=== PATIENT | female | born 1955 | race Caucasian/White ===

== ENCOUNTER 2024-10-21 10:12 | Inpatient (IN) | payer OTHER, MEDICAID ==
[~2024-10-21] VITALS: Ht 157.5 cm; Wt 117.9 kg
--- NOTE | 2024-10-21 10:30 | ED.PDOC ---
GI ASSESSMENT HPI Comments Nausea, vomiting and right lower extremity pain Chief Complaint: Abdominal Pain Comments 69-year-old female brought in by EMS from home complaining of an exacerbation of chronic right lower extremity pain due to spinal stenosis and sciatica. Patient states she has had nausea and vomiting since 1:00 a.m., associated with right- sided abdominal burning pain. She states she has been unable to keep any food o r liquids down, including her pain medication, which has resulted in an exacerbation of her chronic right lower extremity pain. Family was attempting to bring the patient to a pain management appointment today, however the patient was in so much pain she was unable to ambulate or get into her vehicle, at which point the family called 911. Patient denies any fever, diarrhea, constipation or dysuria. She denies any numbness or weakness of her lower extremity, and confirms that the pain is chronic. She typically takes [place] and gabapentin for the pain. 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 Surgical History: Cholecystectomy, Hernia Repair HAM MARKER History: No Pertinent HAM MARKER History Family History Family History: Reviewed,noncontributory to illness Social History Smoker: Non-Smoker Alcohol: Denies ETOH Use Drugs: Denies Drug Use Lives In: Home All Other Systems: Reviewed and Negative (Comprehensive systems review obtained and negative except for what is stated in the HPI.) Physical Exam General Appearance: No Apparent Distress HEENT: Other (Pupils symmetric, dry mucous membranes) Neck: Full Range of Motion, Non-Tender, Normal Inspection, Supple Respiratory: Lungs Clear, No Accessory Muscle Use, No Respiratory Distress, Normal Breath Sounds Cardiovascular: No Edema, No JVD, Regular Rate/Rhythm Breast Exam: Deferred Gastrointestinal: Epigastric, RLQ, RUQ, Soft, Tenderness Genitalia: Deferred Pelvic: Deferred Rectal: Deferred Extremities: Normal inspection, Normal range of motion, Non-tender, Pedal edema (Trace) Neurologic: Alert (Oriented x4), Normal Affect, Normal Mood, Other (Moves all extremities. No gross focal deficit. Low back and Right lower extremity pain with straight leg raise) Cerebellar Function: NOT DONE Reflexes: NOT DONE Skin: Dry, Normal Color, Warm Lymphatic: NOT DONE Was a procedure done? Was a procedure done?: No GI differential Dx Differential Diagnosis: Appendicitis, Bowel Obstruction, Cholecystitis, Constipation, Diverticular disease, Gastritis/PUD, Gastroenteritis, Hepatitis, Inflammatory BD, Ischemic Bowel, Pancreatitis, UTI, Dehydration, Diabetes/ DKA, Electrolyte Imbalance, Food Poisoning, Bacterial, Viral, Impaction, Renal Failure, Stress Ulcer, Kidney Stone X-Ray, Labs, Meds, VS Vital Signs Date Time Temp Pulse Resp B/P (MAP) Pulse Ox O2 Delivery O2 Flow Rate FiO2 10/21/24 15:20 78 18 97 Room Air* 0 21 10/21/24 15:20 98.0 78 18 149/80 (103) 98 98.0 10/21/24 12:36 76 17 147/72 (97) 100 10/21/24 11:09 80 17 120/84 10/21/24 10:46 87 20 100 Room Air* 0 21 10/21/24 10:39 87 20 139/70 10/21/24 10:35 97.6 87 20 139/70 (93) 100 97.6 10/21/24 10:19 99.0 92 16 120/80 (93) 100 Lab Test 10/21/24 13:42 10/21/24 11:48 10/21/24 10:34 Range/Units Troponin I High Sensitivity 10 8 8 </=34 ng/L White Blood Count 19.3 H 4.4-10.8 10^3/uL Red Blood Count 4.72 4.0-5.20 10^6/uL Hemoglobin 13.7 12.2-16.2 g/dL Hematocrit 41.5 36.0-46.0 % Mean Corpuscular Volume 88.0 80.0-100.0 fL Mean Corpuscular Hemoglobin 29.0 28.0-32.0 pg Mean Corpuscular Hemoglobin Concent 32.9 32.0-36.0 g/dL Red Cell Distribution Width 13.3 11.8-14.3 % Platelet Count 237 140-450 10^3/uL Mean Platelet Volume 8.4 6.9-10.8 fL Neutrophils (%) (Auto) 89.4 H 37.0-80.0 % Lymphocytes (%) (Auto) 6.3 L 10.0-50.0 % Monocytes (%) (Auto) 3.8 0.0-12.0 % Eosinophils (%) (Auto) 0.2 0.0-7.0 % Basophils (%) (Auto) 0.3 0.0-2.0 % Neutrophils # (Auto) 17.2 H 1.6-8.6 10 ^3/uL Lymphocytes # (Auto) 1.2 0.4-5.4 10 ^3/uL Monocytes # (Auto) 0.7 0-1.3 10 ^3/uL Eosinophils # (Auto) 0 0-0.8 10 ^3/uL Basophils # (Auto) 0.1 0-0.2 10 ^3/uL Nucleated Red Blood Cells 0.0 % Sodium Level 137 136-145 mmol/L Potassium Level 2.8 L 3.5-5.1 mmol/L Chloride Level 98 98-107 mmol/L Carbon Dioxide Level 26 20-31 mmol/L Anion Gap 13 5-15 Blood Urea Nitrogen 18 9-23 mg/dL Creatinine 0.89 0.550-1.02 mg/dL Glomerular Filtration Rate Calc 71 >90 mL/min BUN/Creatinine Ratio 20.2 H 10.0-20.0 Serum Glucose 161 H 74-106 mg/dL Lactic Acid Level 1.6 0.4-2.0 mmol/L Calcium Level 10.8 H 8.7-10.4 mg/dL Total Bilirubin 0.8 0.2-1.0 mg/dL Aspartate Amino Transferase (AST) 20 13-40 U/L Alanine Aminotransferase (ALT) 16 7-40 U/L Alkaline Phosphatase 134 H 46-116 U/L Total Protein 6.7 5.7-8.2 g/dL Albumin 4.6 3.2-4.8 g/dL Lipase 29 12-53 U/L Current Medications Medications (Trade) Dose Ordered Sig/Ryann Route Start Time Stop Time Status Last Admin Morphine Sulfate 4 mg ONCE ONCE IV 10/21/24 10:30 10/21/24 10:31 DC 10/21/24 10:39 Ondansetron HCl (Zofran) 4 mg ONCE ONCE IV 10/21/24 10:30 10/21/24 10:31 DC 10/21/24 10:39 Sodium Chloride 1,000 ml @ 1,000 mls/hr Q1H ONCE IV 10/21/24 10:30 10/21/24 11:29 DC 10/21/24 10:38 Pantoprazole Sodium (Protonix) 40 mg ONCE ONCE IV 10/21/24 10:30 10/21/24 10:31 DC 10/21/24 10:39 Potassium Chloride (Klor-Con Tablet) 40 meq ONCE ONCE PO 10/21/24 14:15 10/21/24 14:27 DC 10/21/24 15:11 Potassium Chloride 100 ml @ 50 mls/hr ONCE ONCE IV 10/21/24 14:15 10/21/24 16:14 DC 10/21/24 14:15 Sodium Chloride 1,000 ml @ 60 mls/hr [id number] IV 10/21/24 16:00 10/21/24 16:23 Morphine Sulfate 2 mg Q4HPRN PRN IV 10/21/24 16:00 10/21/24 21:20 PROCEDURE(s): ABPL - CT AB PEL WO CON-NO ORAL OR IV REASON: R sided abd pain, n/v ORDER NUMBER(s): [id number], ACCESSION NUMBER(s): [id number] Exam: CT CT AB PEL WO CON-NO ORAL OR IV History: R sided abd pain, n/v Comparison Study: None available at time of dictation. Technique: Multidetector spiral CT of the abdomen and pelvis was performed from lung bases to pubic symphysis. Imaging was performed without intravenous contrast. Coronal and sagittal multiplanar reformats were obtained from the axial data set by the technologist. Radiation Dose : 1. Abdomen/Pelvis: CTDIvol 26.9 mGy, DLP 1432.2 mGy*cm. Findings: Evaluation of vasculature and solid organs is limited due to lack of intravenous contrast use. Lung Bases: Cavitary lesion in the right lower lobe is present measuring 3.4 cm. 4 mm cavitating lesion in the right middle lobe. Visualized portions of the heart and pericardium are unremarkable. Liver: The liver is normal in size. No focal lesions. Diffusely hypoattenuating liver parenchyma consistent with hepatic steatosis. Gallbladder and Biliary Tree: The gallbladder is surgically absent. No intrahepatic or extrahepatic biliary ductal dilatation. Spleen: Unremarkable Pancreas: The pancreas is grossly unremarkable. Adrenal Glands: Unremarkable Kidneys: Kidneys are unremarkable without calculi or hydronephrosis. GI tract: Hiatal hernia. No evidence of small bowel wall thickening or abnormal dilatation to suggest bowel obstruction. Sigmoid diverticulosis without acute diverticulitis. Normal caliber appendix. Peritoneum/mesentery/retroperitoneum. No evidence of free intraperitoneal air. No ascites. There are several nodular soft tissue densities in the ventral abd ominal wall peritoneum measuring 2.7 cm. Lymph nodes: Enlarged left para-aortic lymph node measures 1.4 cm. Abdominal Wall: Containing supraumbilical hernia. Mild fat stranding in the hernia sac. There is a nother supraumbilical hernia containing fat and soft tissue density measuring 1.3 cm. Vasculature: The visualized abdominal aorta is normal in size and caliber. Evaluation of abdominal and pelvic vessels is limited due to lack of intravenous contrast. There are atherosclerotic calcifications in the aorta. Urinary Bladder: Grossly unremarkable for degree of distention. Pelvic Organs: Unremarkable Musculoskeletal: 1.7 cm lytic lesion in the medial wall of the left acetabulum. Lucency in the superior L2 endplate mild height loss and osseous retropulsion. Soft tissues: Nodular soft tissue density in the back at the level of the thoracolumbar junction measuring 2.7 cm. IMPRESSION: 1. No acute finding in the right lower quadrant to explain patient's symptoms. 2. Multiple peritoneal masses suspicious for peritoneal metastatic implants. Primary source is unclear. Consider PET-CT or tissue sampling for further evaluation. 3. Sigmoid diverticulosis without acute diverticulitis. 4. Cavitary mass in the right lower lobe measuring 3.4 cm and smaller cavitary mass in the right middle lobe. These are concerning for cavitary metastatic lesions. Cavitary pneumonia not excluded. 5. Lesion in the L2 superior endplate and medial wall of the left acetabulum concerning for metastatic disease. 6. Retroperitoneal lymphadenopathy, possibly metastatic 7. Cholecystectomy. 8. Hepatic steatosis. X-Ray, Labs, Meds, VS Comment 69-year-old female with a history of hypertension, COPD, spinal stenosis, chronic sciatic nerve pain/right lower extremity pain brought in by EMS from home complaining of a chronic right lower extremity pain exacerbation due to being unable to keep any food or liquids down since she has been vomiting since 1:00 a.m. Vitals remarkable for Exam remarkable for right-sided abdominal and epigastric tenderness to palpation Rhythm strip independently interpreted by me: CT abdomen and pelvis IMPRESSION: 1. No acute finding in the right lower quadrant to explain patient's symptoms. 2. Multiple peritoneal masses suspicious for peritoneal metastatic implants. Primary source is unclear. Consider PET-CT or tissue sampling for further evaluation. 3. Sigmoid diverticulosis without acute diverticulitis. 4. Cavitary mass in the right lower lobe measuring 3.4 cm and smaller cavitary mass in the right middle lobe. These are concerning for cavitary metastatic lesions. Cavitary pneumonia not excluded. 5. Lesion in the L2 superior endplate and medial wall of the left acetabulum concerning for metastatic disease. 6. Retroperitoneal lymphadenopathy, possibly metastatic 7. Cholecystectomy. 8. Hepatic steatosis. CBC remarkable for WBC 19.3, CMP remarkable for potassium 2.8, lipase normal, UA pending, lactic normal Patient treated with the following in the ED: 1 L 0.9 normal saline IV bolus, morphine 4 mg IV, Zofran 4 mg IV, Protonix 40 mg IV On re-evaluation, patient states pain has improved, vitals were stable, nausea has improved. Plan is to admit the patient for pain control, electrolyte correction, and Oncology evaluation. Time of 1ST Reevaluation: 14:00 Reevaluation 1ST: Improved Patient Education/Counseling: Diagnosis, Treatment Family Education/Counseling: No Family Present Departure 1 Departure Time of Disposition: 14:00 Impression: Primary Impression: Nausea & vomiting Qualified Codes: R11.2 - Nausea with vomiting, unspecified Additional Impressions: Hypokalemia Metastasis of unknown origin Chronic pain of right lower extremity Disposition: ADMITTED INPATIENT Admit to: Med Surg Condition: Guarded Critical Care Note Critical Care Time?: No Stability Stability form required: No Heart Score Heart Score: Heart Score Response (Comments) Value History N/A 0 EKG N/A 0 Age N/A 0 Risk Factors N/A 0 Troponin N/A 0 Total 0 PAYAM TAVERA MD Oct 21, 2024 10:30
[2024-10-21] MEDS: SODIUM CHLORIDE 0.9% 1,000 ML IV ONE (10:38)
[2024-10-21] MEDS: MORPHINE SULFATE 4 MG/ML SYR/VIAL IV ONE (10:39)
[2024-10-21] MEDS: ONDANSETRON HCL 4 MG/2 ML VIAL IV ONE (10:39)
[2024-10-21] MEDS: PANTOPRAZOLE 40 MG/10 ML VIAL INJ IV ONE (10:39)
[2024-10-21 10:46] VITALS: PULSE 87; RESP 20; O2SAT 100
[2024-10-21 10:56] LABS: Basophils # (auto) 0.1 10 ^3/uL (0-0.2); Basophils % (auto) 0.3 % (0.0-2.0); Eosinophils # (auto) 0 10 ^3/uL (0-0.8); Eosinophils % (auto) 0.2 % (0.0-7.0); Hematocrit 41.5 % (36.0-46.0); Hemoglobin 13.7 g/dL (12.2-16.2); Lymphocytes # (auto) 1.2 10 ^3/uL (0.4-5.4); Lymphocytes % (auto) 6.3 % (10.0-50.0); Mean Corpuscular Hgb Conc. 32.9 g/dL (32.0-36.0); Monocytes # (auto) 0.7 10 ^3/uL (0-1.3); Monocytes % (auto) 3.8 % (0.0-12.0); Neutrophils # (auto) 17.2 10 ^3/uL (1.6-8.6); Neutrophils % (auto) 89.4 % (37.0-80.0); Platelet Count (auto) 237 10^3/uL (140-450); Red Blood Cells 4.72 10^6/uL (4.0-5.20); Red Cell Distribution Width 13.3 % (11.8-14.3); White Blood Cell 19.3 10^3/uL (4.4-10.8)
[2024-10-21 11:17] LABS: Alanine Aminotransferase 16 U/L (7-40); Carbon Dioxide 26 mmol/L (20-31); Chloride 98 mmol/L (98-107)
[2024-10-21 11:18] LABS: Albumin 4.6 g/dL (3.2-4.8); Anion Gap 13 (5-15); Aspartate Aminotransferase 20 U/L (13-40); BUN/Creatinine Ratio 20.2 (10.0-20.0); Bilirubin, Total 0.8 mg/dL (0.2-1.0); Blood Urea Nitrogen 18 mg/dL (9-23); Lipase 29 U/L (12-53); Sodium 137 mmol/L (136-145); Total Protein 6.7 g/dL (5.7-8.2)
[2024-10-21 11:23] LABS: Alkaline Phosphatase 134 U/L (46-116); Calcium 10.8 mg/dL (8.7-10.4); Glucose 161 mg/dL (74-106); Potassium 2.8 mmol/L (3.5-5.1)
--- NOTE | 2024-10-21 12:08 | DVH ---
Exam: CT CT AB PEL WO CON-NO ORAL OR IV History: R sided abd pain, n/v Comparison Study: None available at time of dictation. Technique: Multidetector spiral CT of the abdomen and pelvis was performed from lung bases to pubic s ymphysis. Imaging was performed without intravenous contrast. Coronal and sagittal multiplanar reform ats were obtained from the axial data set by the technologist. Radiation Dose : 1. Abdomen/Pelvis: CTDIvol 26.9 mGy, DLP 1432.2 mGy*cm. Findings: Evaluation of vasculature and solid organs is limited due to lack of intravenous contrast use. Lung Bases: Cavitary lesion in the right lower lobe is present measuring 3.4 cm. 4 mm cavitating lesi on in the right middle lobe. Visualized portions of the heart and pericardium are unremarkable. Liver: The liver is normal in size. No focal lesions. Diffusely hypoattenuating liver parenchyma con sistent with hepatic steatosis. Gallbladder and Biliary Tree: The gallbladder is surgically absent. No intrahepatic or extrahepatic b iliary ductal dilatation. Spleen: Unremarkable Pancreas: The pancreas is grossly unremarkable. Adrenal Glands: Unremarkable Kidneys: Kidneys are unremarkable without calculi or hydronephrosis. GI tract: Hiatal hernia. No evidence of small bowel wall thickening or abnormal dilatation to suggest bowel obstruction. Sigmoid diverticulosis without acute diverticulitis. Normal caliber appendix. Peritoneum/mesentery/retroperitoneum. No evidence of free intraperitoneal air. No ascites. There are several nodular soft tissue densities in the ventral abdominal wall peritoneum measuring 2.7 cm. Lymph nodes: Enlarged left para-aortic lymph node measures 1.4 cm. Abdominal Wall: Containing supraumbilical hernia. Mild fat stranding in the hernia sac. There is a n other supraumbilical hernia containing fat and soft tissue density measuring 1.3 cm. Vasculature: The visualized abdominal aorta is normal in size and caliber. Evaluation of abdominal a nd pelvic vessels is limited due to lack of intravenous contrast. There are atherosclerotic calcifica tions in the aorta. Urinary Bladder: Grossly unremarkable for degree of distention. Pelvic Organs: Unremarkable Musculoskeletal: 1.7 cm lytic lesion in the medial wall of the left acetabulum. Lucency in the superi or L2 endplate mild height loss and osseous retropulsion. Soft tissues: Nodular soft tissue density in the back at the level of the thoracolumbar junction loyd uring 2.7 cm. IMPRESSION: 1. No acute finding in the right lower quadrant to explain patient's symptoms. 2. Multiple peritoneal masses suspicious for peritoneal metastatic implants. Primary source is unclea r. Consider PET-CT or tissue sampling for further evaluation. 3. Sigmoid diverticulosis without acute diverticulitis. 4. Cavitary mass in the right lower lobe measuring 3.4 cm and smaller cavitary mass in the right midd le lobe. These are concerning for cavitary metastatic lesions. Cavitary pneumonia not excluded. 5. Lesion in the L2 superior endplate and medial wall of the left acetabulum concerning for metastati c disease. 6. Retroperitoneal lymphadenopathy, possibly metastatic 7. Cholecystectomy. 8. Hepatic steatosis.
[2024-10-21] MEDS: POTASSIUM CHL 20MEQ/100ML 100 ML IV ONE (14:15)
[2024-10-21] MEDS: POTASSIUM CHL 20 Meq TABLET PO ONE (15:11)
[2024-10-21 15:20] VITALS: PULSE 78; RESP 18; O2SAT 97
[2024-10-21] MEDS ORDERED: ONDANSETRON HCL 4 MG/2 ML VIAL IV PRN (16:00)
[2024-10-21] MEDS ORDERED: ACETAMINOPHEN 325 MG TAB PO PRN (16:00)
[2024-10-21] MEDS ORDERED: DOCUSATE SOD 100 MG CAP PO PRN (16:00)
--- NOTE | 2024-10-21 16:13 | DVHHP2 ---
History of Present Illness Reason for Visit: Nausea & vomiting History of Present Illness The patient is a 69-year-old female with multiple past medical history including spinal stenosis, hypertension, and COPD who presented to [facility] ED with complaint of exacerbation of chronic right lower extremity pain due to spinal stenosis and sciatica. Patient reports she has been nauseated and vomiting throughout this morning, associated right-sided abdominal pain, unable to keep any food or liquid down, getting worse that prompted this visit. Family was attempting to bring the patient to a pain management appointment today, however, the patient was in so much pain that she was unable to ambulate or get into her vehicle, so EMS were called 911. Patient was seen and evaluated in the ED, laboratory data shows WBC 19.3, platelets 237, sodium 137, potassium 2.8, BUN 18, creatinine 0.89, GFR 71, glucose 161, lipase 29, calcium 10.8, troponin 10, blood pressure 149/80, heart rate 78, temperature 98.0 F, O2 saturation 97% on room air. Abdomen/pelvis CT revealing multiple peritoneal masses suspicious for peritoneal metastatic implant, primary source is unclear, sigmoid dive rticulosis without acute diverticulitis, no acute finding in the right lower quadrant. Patient was started on IV antibiotic regimen Rocephin, please see medication orders section in the computer. On my assessment, patient denies chest pain, no headache, no dizziness, no abdominal pain at this moment, no nausea, no vomiting, no fever, no chills. Patient was admitted for further eval uation and medical management. 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 Past Social History The patient lives at home, denies smoking, alcohol or illicit drugs abuse. Review of Systems Constitutional: Yes: Weakness; No: Fever, Chills, Sweats, Malaise, Other Eyes: No: Pain, Vision change, Conjunctivae inflammation, Eyelid inflammation, Other, Redness ENT: No: Ear pain, Ear discharge, Nose pain, Nose discharge, Nose congestion, Mouth pain, Mouth swelling, Throat pain, Throat swelling, Other Respiratory: No: Cough, Dry, Shortness of breath, SOB with excertion, Wheezing, Hemoptysis, Pleuritic Pain, Sputum, Wheezing, Other Cardiovascular: No: Chest Pain, Palpitations, Orthopnea, Paroxysmal Noc. Dyspnea, Edema, Lt Headedness, Other Gastrointestinal: Nausea, Vomiting, Abdominal Pain; No: Diarrhea, Constipation, Melena, Hematochezia, Other Genitourinary: No Dysuria, No Frequency, No Incontinence, No Hematuria, No Retention, No Other Musculoskeletal: back pain; No: other, neck pain, shoulder pain, arm pain, hand pain, leg pain, foot pain Skin: No: Rash, Lesions, Jaundice, Bruising, Other Neurological: No: Weakness, Numbness, Incoordination, Change in speech, Confusion, Seizures, Other Allergies: Coded Allergies: Meperidine (Verified Allergy, Unknown, 10/21/24) Medications Current Medications Medications Dose Ordered Sig/Ryann Route Start Time Stop Time Status Last Admin Dose Admin Pantoprazole Sodium 40 mg DAILY IV 10/22/24 10:00 UNV Sodium Chloride 1,000 ml @ 60 mls/hr [id number] IV 10/21/24 16:00 UNV Acetaminophen/ Hydrocodone Bitart 1 tab Q4HP PRN PO 10/21/24 16:00 UNV Ondansetron HCl 4 mg Q4HP PRN IV 10/21/24 16:00 UNV Docusate Sodium 100 mg BIDPRN PRN PO 10/21/24 16:00 UNV Acetaminophen 650 mg Q6HP PRN PO 10/21/24 16:00 UNV Morphine Sulfate 2 mg Q4HPRN PRN IV 10/21/24 16:00 UNV Exam Vital Signs Vital Signs Date Time Temp Pulse Resp B/P (MAP) Pulse Ox O2 Delivery O2 Flow Rate FiO2 10/21/24 15:20 78 18 97 Room Air* 0 21 10/21/24 15:20 98.0 149/80 (103) 98.0 General Appearance: Alert, Oriented X3, Cooperative, No acute distress HEENT: Atraumatic, PERRLA, EOMI, Mucous membr. moist/pink Respiratory: Clear to auscultation, Normal air movement Cardiovascular: Regular rate, Normal S1, Normal S2, No murmurs Abdominal: Normal bowel sounds, Soft, No tenderness, No hepatospenomegaly, No masses Extremities: No clubbing, No cyanosis, No edema, Normal pulses, No tenderness/swelling Skin: No rashes, No breakdown, No significant lesion Neuro: Normal speech, Normal tone, Sensation intact, Cranial nerves 3-12 NL, Reflexes 2+, Other (Generalized weakness) Psych/Mental Status: Mental status NL, Mood NL Labs/Xrays Labs Test 10/21/24 13:42 10/21/24 10:34 Range/Units Troponin I High Sensitivity 10 </=34 ng/L White Blood Count 19.3 H 4.4-10.8 10^3/uL Red Blood Count 4.72 4.0-5.20 10^6/uL Hemoglobin 13.7 12.2-16.2 g/dL Hematocrit 41.5 36.0-46.0 % Mean Corpuscular Volume 88.0 80.0-100.0 fL Mean Corpuscular Hemoglobin 29.0 28.0-32.0 pg Mean Corpuscular Hemoglobin Concent 32.9 32.0-36.0 g/dL Red Cell Distribution Width 13.3 11.8-14.3 % Platelet Count 237 140-450 10^3/uL Mean Platelet Volume 8.4 6.9-10.8 fL Neutrophils (%) (Auto) 89.4 H 37.0-80.0 % Lymphocytes (%) (Auto) 6.3 L 10.0-50.0 % Monocytes (%) (Auto) 3.8 0.0-12.0 % Eosinophils (%) (Auto) 0.2 0.0-7.0 % Basophils (%) (Auto) 0.3 0.0-2.0 % Neutrophils # (Auto) 17.2 H 1.6-8.6 10 ^3/uL Lymphocytes # (Auto) 1.2 0.4-5.4 10 ^3/uL Monocytes # (Auto) 0.7 0-1.3 10 ^3/uL Eosinophils # (Auto) 0 0-0.8 10 ^3/uL Basophils # (Auto) 0.1 0-0.2 10 ^3/uL Nucleated Red Blood Cells 0.0 % Sodium Level 137 136-145 mmol/L Potassium Level 2.8 L 3.5-5.1 mmol/L Chloride Level 98 98-107 mmol/L Carbon Dioxide Level 26 20-31 mmol/L Anion Gap 13 5-15 Blood Urea Nitrogen 18 9-23 mg/dL Creatinine 0.89 0.550-1.02 mg/dL Glomerular Filtration Rate Calc 71 >90 mL/min BUN/Creatinine Ratio 20.2 H 10.0-20.0 Serum Glucose 161 H 74-106 mg/dL Lactic Acid Level 1.6 0.4-2.0 mmol/L Calcium Level 10.8 H 8.7-10.4 mg/dL Total Bilirubin 0.8 0.2-1.0 mg/dL Aspartate Amino Transferase (AST) 20 13-40 U/L Alanine Aminotransferase (ALT) 16 7-40 U/L Alkaline Phosphatase 134 H 46-116 U/L Total Protein 6.7 5.7-8.2 g/dL Albumin 4.6 3.2-4.8 g/dL Lipase 29 12-53 U/L PATIENT: HAIM GALICIA ACCT: [id number] UNIT: [id number] : 1955 LOC: ER ROOM / BED: / AGE / SEX: 69 / F ADM STATUS: REG ER SERVICE 1021 ORDERING PHYSICIAN: PAYAM TAVERA MD PROCEDURE(s): ABPL - CT AB PEL WO CON-NO ORAL OR IV REASON: R sided abd pain, n/v ORDER NUMBER(s): [id number], ACCESSION NUMBER(s): [id number] Exam: CT CT AB PEL WO CON-NO ORAL OR IV History: R sided abd pain, n/v Comparison Study: None available at time of dictation. Technique: Multidetector spiral CT of the abdomen and pelvis was performed from lung bases to pubic symphysis. Imaging was performed without intravenous contrast. Coronal and sagittal multiplanar reformats were obtained from the axial data set by the technologist. Radiation Dose: 1. Abdomen/Pelvis: CTDIvol 26.9 mGy, DLP 1432.2 mGy*cm. Findings: Evaluation of vasculature and solid organs is limited due to lack of intravenous contrast use. Lung Bases: Cavitary lesion in the right lower lobe is present measuring 3.4 cm. 4 mm cavitating lesion in the right middle lobe. Visualized portions of the heart and pericardium are unremarkable. Liver: The liver is normal in size. No focal lesions. Diffusely hypoattenuating liver parenchyma consistent with hepatic steatosis. Gallbladder and Biliary Tree: The gallbladder is surgically absent. No intrahepatic or extrahepatic biliary ductal dilatation. Spleen: Unremarkable Pancreas: The pancreas is grossly unremarkable. Adrenal Glands: Unremarkable Kidneys: Kidneys are unremarkable without calculi or hydronephrosis. GI tract: Hiatal hernia. No evidence of small bowel wall thickening or abnormal dilatation to suggest bowel obstruction. Sigmoid diverticulosis without acute diverticulitis. Normal caliber appendix. Peritoneum/mesentery/retroperitoneum. No evidence of free intraperitoneal air. No ascites. There are several nodular soft tissue densities in the ventral abdominal wall peritoneum measuring 2.7 cm. Lymph nodes: Enlarged left para-aortic lymph node measures 1.4 cm. Abdominal Wall: Containing supraumbilical hernia. Mild fat stranding in the hernia sac. There is a nother supraumbilical hernia containing fat and soft tissue density measuring 1.3 cm. Vasculature: The visualized abdominal aorta is normal in size and caliber. Evaluation of abdominal and pelvic vessels is limited due to lack of intravenous contrast. There are atherosclerotic calcifications in the aorta. Urinary Bladder: Grossly unremarkable for degree of distention. Pelvic Organs: Unremarkable Musculoskeletal: 1.7 cm lytic lesion in the medial wall of the left acetabulum. Lucency in the superior L2 endplate mild height loss and osseous retropulsion. Soft tissues: Nodular soft tissue density in the back at the level of the thoracolumbar junction measuring 2.7 cm. IMPRESSION: 1. No acute finding in the right lower quadrant to explain patient's symptoms. 2. Multiple peritoneal masses suspicious for peritoneal metastatic implants. Primary source is unclear. Consider PET-CT or tissue sampling for further evaluation. 3. Sigmoid diverticulosis without acute diverticulitis. 4. Cavitary mass in the right lower lobe measuring 3.4 cm and smaller cavitary mass in the right middle lobe. These are concerning for cavitary metastatic lesions. Cavitary pneumonia not excluded. 5. Lesion in the L2 superior endplate and medial wall of the left acetabulum concerning for metastatic disease. 6. Retroperitoneal lymphadenopathy, possibly metastatic 7. Cholecystectomy. 8. Hepatic steatosis. Assessment/Plan Assessment/Plan Nausea & vomiting Nausea with vomiting, unspecified Hypokalemia Leukocytosis, unspecified Metastasis of unknown origin Chronic pain of right lower extremity Plan 1. Admit to med surge unit 2. Breathing treatment 3. Pain control management 4. IV antibiotic management 5. Management of fluids and electrolytes 6. Consultation for hospitalist/Hematology/Oncology 7. Diagnostic test abdomen/pelvis CT 8. DVT prophylaxis-on SCDs 9. Repeat labs CBC, CMP in a.m. 10. Home medication reviewed and reconciled 11. Continue with current medical management 12. Treatment plan discussed with patient and RN. Patient verbalized understanding. Plan discussed with: Patient, Other (RN) My Orders Orders - JOHN MARTINEZ DNP Procedure Category Date Status Time Pantoprazole PHA 10/22/24 Logged (Protonix) 10:00 Hemoglobin A1c LAB 10/21/24 Logged 15:59 Allergies HARISH 10/21/24 In Process 15:59 Code Status CODE 10/21/24 Transmitted 15:59 Sodium Chloride 0.9% PHA 10/21/24 Logged 16:00 Oxygen Per Hour RT 10/21/24 Transmitted 15:59 Hydrocodone-Acet PHA 10/21/24 Logged 5/325mg Tab ([place] 16:00 Ondansetron Hcl PHA 10/21/24 Logged (Zofran) 16:00 Docusate Sodium PHA 10/21/24 Logged Capsule (Colace 16:00 Complete Blood Count LAB 10/22/24 Verified 04:00 Comprehensive LAB 10/22/24 Verified Metabolic Panel 04:00 Condition: Serious HARISH 10/21/24 In Process 15:59 Acetaminophen Tablet PHA 10/21/24 Logged (Tylenol Tablet) 16:00 Clear Liq Diet DIET 10/21/24 Transmitted Dinner Bedrest With Bathroom HARISH 10/21/24 In Process Privileg 15:59 Morphine Sulfate PHA 10/21/24 Logged Injection 16:00 Sequential HARISH 10/21/24 In Process Compression Device Admit ADMIT 10/21/24 Verified 16:10 Nitroglycerin PHA 10/21/24 Verified Sublingual (Ntrostat 16:15 Morphine Sulfate PHA 10/21/24 Verified Injection 16:15 Notify Md Of Changes AHRISH 10/21/24 Verified From Base 16:10 Emergency Dysrhythmia HARISH 10/21/24 Verified Protocol 16:10 Oxygen By Nasal RT 10/21/24 Verified Cannula 16:10 Problem List: (1) Nausea & vomiting (2) Leukocytosis, unspecified (3) Hypokalemia (4) Metastasis of unknown origin (5) Chronic pain of right lower extremity (6) Nausea with vomiting, unspecified Date of Service: Oct 21, 2024 Billing Provider: JOHN MARTINEZ DNP Common Visit Codes: 31881-[id number] INP/OBS CARE (HIGH) JOHN MARTINEZ DNP Oct 21, 2024 16:13
[2024-10-21] MEDS ORDERED: NITROGLYCERIN 0.4 MG SL TAB SL PRN (16:15)
[2024-10-21] MEDS ORDERED: MORPHINE SULFATE INJ 2 MG/ml SYRG IV PRN (16:15)
[2024-10-21] MEDS: SODIUM CHLORIDE 0.9% 1,000 ML IV SCH (16:23)
[2024-10-21] MEDS: HYDROmorphone HCL 2 MG/ML VL/or syr IV ONE (17:21)
[2024-10-21 17:51] VITALS: RESP 18
[2024-10-21 17:57] VITALS: PULSE 92; RESP 18; TEMP 98; O2SAT 95
[2024-10-21] MEDS ORDERED: hydrALAZINE HCL 20 MG/ML VL IV PRN (18:00)
[2024-10-21] MEDS: cefTRIAXone 1GM/50ML D5W 50 ML IV ONE (19:06)
[2024-10-21 21:00] VITALS: BP 137/75; PULSE 101; RESP 19; TEMP 98.3; O2SAT 97
[2024-10-21] MEDS: MORPHINE SULFATE INJ 2 MG/ml SYRG IV PRN (21:20)
[2024-10-21] MEDS: GABAPENTIN 300 MG CAP PO SCH (22:00)
[2024-10-22] VITALS (8 sets, daily range): BP systolic 117–150; BP diastolic 63–76; PULSE 87–105; RESP 16–20; TEMP 97.7–98.5; O2SAT 94–97
[2024-10-22 07:38] LABS: Basophils # (auto) 0.1 10 ^3/uL (0-0.2); Basophils % (auto) 0.3 % (0.0-2.0); Eosinophils # (auto) 0.4 10 ^3/uL (0-0.8); Eosinophils % (auto) 1.6 % (0.0-7.0); Hemoglobin 12.9 g/dL (12.2-16.2); Lymphocytes # (auto) 1.7 10 ^3/uL (0.4-5.4); Lymphocytes % (auto) 7.4 % (10.0-50.0); Mean Corpuscular Hgb Conc. 33.9 g/dL (32.0-36.0); Mean Corpuscular Volume 88.5 fL (80.0-100.0); Monocytes # (auto) 1.9 10 ^3/uL (0-1.3); Monocytes % (auto) 8.2 % (0.0-12.0); Neutrophils # (auto) 19.4 10 ^3/uL (1.6-8.6); Neutrophils % (auto) 82.5 % (37.0-80.0); Nucleated Red Blood Cells % 0.1 %; Platelet Count (auto) 222 10^3/uL (140-450); Red Blood Cells 4.29 10^6/uL (4.0-5.20); Red Cell Distribution Width 13.5 % (11.8-14.3); White Blood Cell 23.5 10^3/uL (4.4-10.8)
[2024-10-22] MEDS: HYDROcodone-ACET 5/325MG TAB PO PRN (07:47)
[2024-10-22 07:53] LABS: Alanine Aminotransferase 25 U/L (7-40); Anion Gap 14 (5-15); BUN/Creatinine Ratio 23.3 (10.0-20.0); Blood Urea Nitrogen 17 mg/dL (9-23); Calcium 9.9 mg/dL (8.7-10.4); Carbon Dioxide 23 mmol/L (20-31); Chloride 102 mmol/L (98-107); Sodium 139 mmol/L (136-145)
[2024-10-22 07:55] LABS: Albumin 4.1 g/dL (3.2-4.8); Aspartate Aminotransferase 22 U/L (13-40); Bilirubin, Total 0.8 mg/dL (0.2-1.0); Total Protein 6.1 g/dL (5.7-8.2)
[2024-10-22 07:56] LABS: Alkaline Phosphatase 128 U/L (46-116); Glucose 123 mg/dL (74-106); Potassium 2.8 mmol/L (3.5-5.1)
[2024-10-22] MEDS: cefTRIAXone 1GM/50ML D5W 50 ML IV SCH (09:44)
[2024-10-22] MEDS: PANTOPRAZOLE 40 MG/10 ML VIAL INJ IV SCH (09:44)
[2024-10-22] MEDS ORDERED: GABA-1250 PO (10:49)
[2024-10-22] MEDS ORDERED: LISI20TA56 PO (10:49)
[2024-10-22] MEDS ORDERED: HYDR-4798 PO (10:49)
--- NOTE | 2024-10-22 13:20 | DVHINCON2 ---
Date of service: Oct 22, 2024 Referring Physician Kizzy Hill Reason for Consultation Multiple peritoneal masses suspicious for peritoneal metastatic implants Cavitary mass in the right lower lobe measuring 3.4 cm and smaller cavitary mass in the right middle lobe. Retroperitoneal lymphadenopathy History of Present Illness 69 years old obese female who has a history of COPD, hypertension, spinal stenosis and sciatica in the right lower extremity was admitted with complaints of air which is stable nausea vomiting for one day could not keep any food down and came to the hospital CT scan of the abdomen pelvis without IV contrast was done which showed multiple peritoneal masses suspicious for peritoneal metastatic implants. Cavitary mass in the right lower lobe measuring 3.4 cm and a smaller cavitary mass in the right middle lobe concerning for cavitary metastatic disease. Lesion in the L2 superior endplate and medial wall of the left acetabulum concerning for Mets. Retroperitoneal lymphadenopathy probably metastatic disease hepatic steatosis the patient has lost 10 lb of weight. Her bowel movements are fine. She gives a history of ulcerative colitis in the last colonoscope was over 10 years back fevers night sweats no bruising or bleeding. Her white count is 23.5 hemoglobin 12.9 platelets 222 with 82.5% neutrophils. Potassium 2.8 normal renal functions and liver functions. Total protein six point albumin 4.1 Past Medical History COPD, hypertension, spinal stenosis with right leg pain Cholecystectomy and abdominal hernia repair Family History: Alcoholism FH: HTN (hypertension) FH: hepatic cirrhosis G8 FATHER FH: lymphoma G8 MOTHER Family History Sister breast cancer 20 cc breast cancer in their 30s Mother had non-Hodgkin's lymphoma Social History Patient is not a smoker or drinker or any drugs Allergies: Coded Allergies: Meperidine (Verified Allergy, Unknown, 10/21/24) Home Meds Reported Medications Hydrocodone-Acetaminophen (Hydrocodone Bitartrate/AC 10-325 mg) 1 Tab Tab, 1 TAB PO, TAB 10/22/24 Gabapentin (Gabapentin) 300 Mg Cap, 1 CAP PO TID, #90 CAP 3 Refills 10/22/24 Lisinopril (Lisinopril) 20 Mg Tab, 1 TAB PO DAILY, #30 TAB 5 Refills 10/22/24 Current Medications Current Medications Medications (Trade) Dose Ordered Sig/Ryann Route PRN Reason Start Time Stop Time Status Last Admin Pantoprazole Sodium (Protonix) 40 mg DAILY IV 10/22/24 10:00 10/22/24 09:44 Sodium Chloride 1,000 ml @ 60 mls/hr [id number] IV 10/21/24 16:00 10/21/24 16:23 Acetaminophen/ Hydrocodone Bitart ([place] 5/325MG Tab) 1 tab Q4HP PRN PO MODERATE PAIN (4-6 PAIN SCALE) 10/21/24 16:00 10/22/24 07:47 Ondansetron HCl (Zofran) 4 mg Q4HP PRN IV NAUSEA / VOMITING 10/21/24 16:00 Docusate Sodium (Colace Capsule) 100 mg BIDPRN PRN PO FOR CONSTIPATION 10/21/24 16:00 Acetaminophen (Tylenol Tablet) 650 mg Q6HP PRN PO PAIN SCALE 1-3 OR TEMP>100.4 10/21/24 16:00 Morphine Sulfate 2 mg Q4HPRN PRN IV SEVERE PAIN (7-10 PAIN SCALE) 10/21/24 16:00 10/22/24 11:51 Nitroglycerin (Ntrostat Sublingual) 0.4 mg Q5MINP PRN SL FOR CHEST PAIN 10/21/24 16:15 Morphine Sulfate 2 mg Q30M PRN IV FOR CHEST PAIN 10/21/24 16:15 Gabapentin (Neurontin Capsule) 300 mg TID PO 10/21/24 22:00 10/22/24 05:47 Hydralazine HCl (Apresoline Injection) 10 mg Q6HP PRN IV SBP>150 10/21/24 18:00 Ceftriaxone Sodium 50 ml @ 100 mls/hr DAILY@09 IV 10/22/24 09:00 10/22/24 09:44 Vital Signs Vital Signs Date Time Temp Pulse Resp B/P (MAP) Pulse Ox O2 Delivery O2 Flow Rate FiO2 10/22/24 11:51 89 18 139/74 10/22/24 08:51 97.8 95 97.8 10/22/24 07:30 Room Air* 0 21 Physical Exam Moderately built and nourished, in no acute distress, alert and oriented. Overweight female No jaundice Head and neck: Unremarkable for any masses or neck nodes. No conjunctival or mucosal hemorrhage Lungs: Clear Cardiovascular: S1-S2 heard well Abdomen: Multiple abdominal masses which could be subcutaneous, firm nontender measuring up to 3-4 cm Extremities: No clubbing edema cyanosis or calf tenderness. Skin: Unremarkable for petechia purpura ecchymosis Lymphadenopathy: None Neurological exam: No focal deficit breasts: Both breasts are unremarkable for masses tenderness discharge Axillae: Unremarkable Labs/Diagnostic Data Labs Test 10/22/24 06:10 10/21/24 16:21 10/21/24 13:42 10/21/24 10:34 Range/Units White Blood Count 23.5 H 4.4-10.8 10^3/uL Red Blood Count 4.29 4.0-5.20 10^6/uL Hemoglobin 12.9 12.2-16.2 g/dL Hematocrit 38.0 36.0-46.0 % Mean Corpuscular Volume 88.5 80.0-100.0 fL Mean Corpuscular Hemoglobin 30.0 28.0-32.0 pg Mean Corpuscular Hemoglobin Concent 33.9 32.0-36.0 g/dL Red Cell Distribution Width 13.5 11.8-14.3 % Platelet Count 222 140-450 10^3/uL Mean Platelet Volume 8.8 6.9-10.8 fL Neutrophils (%) (Auto) 82.5 H 37.0-80.0 % Lymphocytes (%) (Auto) 7.4 L 10.0-50.0 % Monocytes (%) (Auto) 8.2 0.0-12.0 % Eosinophils (%) (Auto) 1.6 0.0-7.0 % Basophils (%) (Auto) 0.3 0.0-2.0 % Neutrophils # (Auto) 19.4 H 1.6-8.6 10 ^3/uL Lymphocytes # (Auto) 1.7 0.4-5.4 10 ^3/uL Monocytes # (Auto) 1.9 H 0-1.3 10 ^3/uL Eosinophils # (Auto) 0.4 0-0.8 10 ^3/uL Basophils # (Auto) 0.1 0-0.2 10 ^3/uL Nucleated Red Blood Cells 0.1 % Sodium Level 139 136-145 mmol/L Potassium Level 2.8 L 3.5-5.1 mmol/L Chloride Level 102 98-107 mmol/L Carbon Dioxide Level 23 20-31 mmol/L Anion Gap 14 5-15 Blood Urea Nitrogen 17 9-23 mg/dL Creatinine 0.73 0.550-1.02 mg/dL Glomerular Filtration Rate Calc 90 >90 mL/min BUN/Creatinine Ratio 23.3 H 10.0-20.0 Serum Glucose 123 H 74-106 mg/dL Calcium Level 9.9 8.7-10.4 mg/dL Total Bilirubin 0.8 0.2-1.0 mg/dL Aspartate Amino Transferase (AST) 22 13-40 U/L Alanine Aminotransferase (ALT) 25 7-40 U/L Alkaline Phosphatase 128 H 46-116 U/L Total Protein 6.1 5.7-8.2 g/dL Albumin 4.1 3.2-4.8 g/dL Hemoglobin A1c 6.1 H <5.7 % A1C Troponin I High Sensitivity 10 </=34 ng/L Lactic Acid Level 1.6 0.4-2.0 mmol/L Lipase 29 12-53 U/L Assessment 1.Multiple peritoneal masses, cavitary mass in the right lower lobe of the lung measuring 3.4 cm and a smaller cavitary mass in the right middle lobe and a lesion in the L2 superior endplate suspicious, retroperitoneal lymphadenopathy suspicious, may rule out underlying malignancy. Has a history of ulcerative colitis raising the concern colon cancer or other malignancies 2. Obesity 3. History of COPD 4. Hypertension 5. Spinal stenosis Plan/Recommendation Biopsy one of the abdominal masses A bone scan CT of the chest with contrast CT of the abdomen pelvis with IV contrast Check CEA, CA 125 and CA 19-9 LDH Stool guaiac Plan discussed with: Patient JAZZMINE PITTMAN MD Oct 22, 2024 13:20
--- NOTE | 2024-10-22 14:05 | DVH ---
Procedure: US RT Lower DVT Study Date and Requested Time: 10/22/2024 01:35 PM History: pain Comparison: None Technique: Multiple high resolution ta-scale images with and without compression obtained of the ri t lower extremity veins, including the common femoral vein, deep femoral vein, proximal mid and dis kayli superficial femoral vein, and popliteal vein. Additional limited images of the greater saphenous vein also obtained. Augmentation performed as indicated. Color and spectral doppler flow images obtai wendi as indicated. Findings: There is deep vein thrombosis of the right popliteal vein. No visible intraluminal venous thrombus an d no evidence of incompressibility or abnormal color or spectral Doppler flow visualized in the remai nder of the right lower extremity veins including, the common femoral vein, deep femoral vein, proxim al mid and distal superficial femoral vein. Greater saphenous vein grossly unremarkable. Impression: Right popliteal vein deep vein thrombosis. Gravedigger noted notification of patient's registered nurse Fab
--- NOTE | 2024-10-22 14:30 | DVHPN2 ---
Progress Note - Dictate Date Seen: Oct 22, 2024 Medical Necessity Reason Pt with a Central, PICC or Fol: No Subjective I was asked by on-call [facility] case liner take over this patient given she belongs to [facility]. I am the on-call hospitalist today. Therefore patient's chart is reviewed. Patient is seen and evaluated. Discussed with Dr. Summers hospitalist who is caring for her to transfer the care. Essentially she was admitted here with the abdominal pain. Patient noted to have a significant lymphadenopathy with the abdominal masses as well as lung mass and possible metastatic cancer. She was evaluated by Dr. Thompson oncologist this morning and he is ordering bone scan as well as CT scans of the chest abdomen and pelvis. She was also scheduled to undergo biopsy of the abdominal mass by Radiology. Meantime she had ultrasound of the right lower extremity came back showing popliteal vein DVT. vital signs Vital Sign Date Time Temp Pulse Resp B/P (MAP) Pulse Ox O2 Delivery O2 Flow Rate FiO2 10/22/24 13:00 97.7 87 18 136/68 (90) 96 97.7 10/22/24 07:30 Room Air* 0 21 Total Intake and Output 10/21/24 10/21/24 10/22/24 15:00 23:00 07:00 Intake Total 1000 ml 240 ml 100 ml Balance 1000 ml 240 ml 100 ml medications Current Medications Medications Dose Ordered Sig/Ryann Route Start Time Stop Time Status Last Admin Dose Admin Pantoprazole Sodium 40 mg DAILY IV 10/22/24 10:00 10/22/24 09:44 40 MG Sodium Chloride 1,000 ml @ 60 mls/hr [id number] IV 10/21/24 16:00 10/21/24 16:23 60 MLS/HR Acetaminophen/ Hydrocodone Bitart 1 tab Q4HP PRN PO 10/21/24 16:00 10/22/24 07:47 1 TAB Ondansetron HCl 4 mg Q4HP PRN IV 10/21/24 16:00 Docusate Sodium 100 mg BIDPRN PRN PO 10/21/24 16:00 Acetaminophen 650 mg Q6HP PRN PO 10/21/24 16:00 Morphine Sulfate 2 mg Q4HPRN PRN IV 10/21/24 16:00 10/22/24 11:51 2 MG Nitroglycerin 0.4 mg Q5MINP PRN SL 10/21/24 16:15 Morphine Sulfate 2 mg Q30M PRN IV 10/21/24 16:15 Gabapentin 300 mg TID PO 10/21/24 22:00 10/22/24 13:24 300 MG Hydralazine HCl 10 mg Q6HP PRN IV 10/21/24 18:00 Ceftriaxone Sodium 50 ml @ 100 mls/hr DAILY@09 IV 10/22/24 09:00 10/22/24 09:44 100 MLS/HR Heparin Sodium/ Dextrose 250 ml @ 20.25 mls/ hr [id number] IV 10/22/24 14:15 UNV Magnesium Sulfate/ Dextrose 100 ml @ 100 mls/hr Q1HR IV 10/22/24 15:00 10/22/24 16:59 UNV Magnesium Oxide 400 mg BID PO 10/22/24 22:00 UNV Potassium Bicarbonate 50 meq BID PO 10/23/24 09:00 UNV objective She is alert awake oriented x3. Comfortable in bed without any acute distress. No complaints of chest pain shortness for breath dizziness or lightheadedness. HEENT neck supple no JVD. Pupils equal round react to light. Oropharynx clear. Heart regular rate and rhythm S1 plus S2. Lungs fair air movement. Chest tube will expansion. No rales or wheezes. Abdomen is obese. Soft. Nontender with positive bowel sounds. Extremities mild swelling/edema in the right lower extremity compared to left lower extremity. positive distal pedal pulses. Neurologically no focal deficits. laboratory and microbiology Laboratory Tests 10/22/24 06:10 Test 10/22/24 06:10 Range/Units Serum Glucose 123 H 74-106 mg/dL Assessment/Plan Patient's CT scan and her history suggestive of probable underlying malignancy with a metastatic cancer. Tumor markers are sent to the lab by oncologist today. We will await abdominal mass biopsy as well. Meantime given her DVT I will start her on IV heparin drip for protocol. Given her hypokalemia I will give her IV and potassium oral replacement as well as IV and oral magnesium replacement. Otherwise continue rest of supportive care and treatment. Her further clinical management per clinical course, pending evaluations and recommendations from the risk control consultant. I have discussed with the patient regarding her abdominal CT as well as ultrasound finding results and plan of care. She has verbalized understanding of these and agree with the current care plan. Problems(with codes): (1) Chronic pain of right lower extremity (2) Metastasis of unknown origin (3) Nausea & vomiting (4) Hypokalemia (5) Nausea with vomiting, unspecified (6) Leukocytosis, unspecified Plan discussed with: Patient, Other RANJAN BRICEÑO MD Oct 22, 2024 14:30
[2024-10-22 15:14] LABS: INR 1.03 (0.9-1.15); Partial Thromboplastin Time 26.6 SEC (24.5-34.5); Prothrombin Time 10.9 sec (9.3-11.8)
[2024-10-22] MEDS: MAGNESIUM SULFATE 1GM/100ML 100 ML IV SCH (15:58)
[2024-10-22] MEDS: POTASSIUM EFFERVESENT TAB 25 MEQ PO ONE (15:58)
[2024-10-22] MEDS ORDERED: IOHEXOL 300 MG/ML 100ML BOTTLE IJ ONE (16:20)
--- NOTE | 2024-10-22 17:33 | DVH ---
Exam: CT CT CHEST/AB/PL W CON- IV ONLY History: cancer Comparison Study: CT abdomen and pelvis 10/21/2024 TECHNIQUE: Multidetector CT of the chest, abdomen was performed from lung bases to pubic symphysis. I maging was performed with IV contrast. Axial, coronal and sagittal multiplanar reformats were obtaine d from the axial data set by the technologist. Radiation Dose Information: CT Dose: CTDI volume is 27.32 mGy. Dose-length product is 1729.25 mGy*cm FINDINGS: Chest: Thyroid gland is unremarkable. Heart size is within normal limits. No evidence of aortic aneurysm or dissection. Mild atherosclerot ic calcification of the aorta. Mild dilatation of the pulmonary trunk up to 31 mm. Multiple prominent mediastinal lymph nodes largest of the infracarinal region measuring up to 2.3 cm and cystic. Which may represent a necrotic node. The remainder of the mediastinal lymph node demonst rates areas of necrosis. There is right hilar lymphadenopathy. No pneumothorax or pleural effusion. 3.5 x 2.9 cm right lower lobe mass with left eccentric cavitatio n. 2.7 x 1 cm right-sided posterolateral lower lobe focal pleural nodularity. Minimal biapical parase ptal emphysematous changes. Bilateral lower lobe and lingula atelectasis. 0.8 cm and 0.5 cm right low er lobe solid nodule abutting the fissure with adjacent 0.6 cm right upper lobe solid nodule abutting the fissure. 0.8 cm right middle lobe solid nodule abutting the fissure with additional 0.3 cm right middle lobe solid nodule. 1.8 x 2.8 cm nodular lesion of the right posterior medial subcutaneous fat abutting the skin which ma y represent a possible sebaceous cyst. The soft tissues are otherwise unremarkable. Mild dextroconv ex curvature of the thoracic spine. There is osseous lesion over the right anterior 9th rib adjacent to the costochondral junction. Abdomen and pelvis: Mild hepatomegaly. Otherwise, liver, pancreas and left adrenal glands unremarkable. Status post mike cystectomy. 1.9 cm right adrenal hypodense lesion measuring up to 18 Hounsfield units. Near-complete non enhancement of the pancreas with adjacent fat stranding. Subcentimeter hypodense left renal lesions that are too small to characterize. Hypodense right renal lesions which do not measure simple fluid, largest of the interpolar region measuring up to 2.3 cm. N o hydronephrosis or renal calculi bilaterally. Bilateral ureters and urinary bladder unremarkable. Fo ci of calcification within the uterus with suggestion of a fibroid uterus. Bilateral adnexa are unrem arkable. Mild gastric wall thickening. Mild wall thickening of proximal small bowel loops. The remainder of t he small bowel loops unremarkable. Appendix is unremarkable. Small to moderate amount of fecal materi al within the colon. Scattered colonic diverticulosis without diverticulitis. Multiple masses are noted of the anterior abdominal mesenteric fat largest measuring up to 3.5 x 3.4 x 8.4 cm which may represent peritoneal metastatic implants. Additional 1.6 cm nodular lesion is not ed within the left hemipelvis smaller nodules of the left upper abdominal quadrant. No evidence of intraperitoneal free air or free fluid. No evidence of aortic aneurysm or dissection. Exst-cy-ueydfygh atherosclerotic calcification of the aorta and bilateral iliacs. Retroperitoneal lymphadenopathy measuring up to 1.6 cm in short axis. Moderate size supraumbilical hernia containing infarct and part of the anterior mesenteric suggested peritoneal metastatic implant. Tiny fat containing umbilical hernia. Additional small fat containing supraumbilical hernia containing part of the suggested peritoneal metastatic implant. Small fat conta ining right inguinal hernia. Mild nonspecific edema of the midline lower back. Lytic changes of the left acetabulum and L2 superio r vertebral body is redemonstrated. IMPRESSION: Near-complete non enhancement of the spleen with adjacent fat stranding new from 10/21/2024. Correlat e for possible interim splenic injury. Redemonstration of 4 x 2.9 cm cavitating right lower lobe mass with 2.6 x 1 cm right posterolateral l ower lobe pleural nodularity. Few right lung solid nodules are noted measuring up to 0.8 cm which are most likely metastatic nodule s. Mediastinal and right hilar metastatic lymphadenopathy with necrotic nodes noted. Redemonstration of multiple peritoneal masses concerning for peritoneal metastasis Retroperitoneal lymphadenopathy which is most likely neoplastic. Mild wall thickening of the stomach and proximal small bowel loops. Correlate for gastroenteritis. Multiple hypodense right renal lesions which do not measure as simple fluid. Additional subcentimeter hypodense left renal lesions are noted that are too small to characterize. Renal ultrasound is recom mended for further evaluation. No osseous lesion of the left acetabulum, superior L2 vertebral body and right anterior 9th rib which may represent metastatic lesions. Mild dilatation of the pulmonary trunk up to 31 mm. Correlate for pulmonary arterial hypertension. Additional findings as above. Critical Result: Possible splenic injury Findings discussed with patient's nurse Martinez , at 10/22/2024 05:30 PM, and acknowledged receipt and u nderstanding of the findings. ..
[2024-10-22] MEDS: HEPARIN SODIUM (PORCINE) 5000 UNITS/ML 1ML VIAL IV ONE (17:58)
[2024-10-22] MEDS: HEPARIN DRIP/D5W 100UNITS/ML 250 ML IV SCH (18:30)
[2024-10-22 18:54] LABS: INR 1.13 (0.9-1.15); Partial Thromboplastin Time 60.4 SEC (24.5-34.5); Prothrombin Time 11.8 sec (9.3-11.8)
[2024-10-22] MEDS: SENNA 8.6 MG TAB PO SCH (21:24)
[2024-10-22] MEDS: MAGNESIUM OXIDE 400 MG TAB PO SCH (21:24)
[2024-10-22] MEDS: POTASSIUM CHLORIDE 40 MEQ, LIDOCAINE 1% (LOCAL ANESTH.) 4 ML in SODIUM CHL 0.9% 250 ML IV ONE (22:25)
[2024-10-22 23:47] LABS: Urine Bacteria MOD /hpf (None Seen); Urine Blood TRACE /uL (Negative); Urine Clarity Clear (Clear); Urine Color Yellow (Yellow); Urine Protein, UAD 1+ (Negative); Urine Squamous Epithelial Cell FEW /hpf (<5); Urine Urobilinogen 2 mg/dL (Negative); Urine WBC 3 /HPF (0-5); Urine pH 6.5 (5.0-9.0)
[2024-10-22 23:48] LABS: Urine Specific Gravity > 1.050 (1.001-1.035)
[2024-10-23] VITALS (7 sets, daily range): BP systolic 114–135; BP diastolic 70–81; PULSE 103–118; RESP 16–19; TEMP 98–99.4; O2SAT 93–98
[2024-10-23 01:20] LABS: INR 1.08 (0.9-1.15); Prothrombin Time 11.4 sec (9.3-11.8)
[2024-10-23 01:25] LABS: Partial Thromboplastin Time 91.7 SEC (24.5-34.5)
[2024-10-23] MEDS: fentaNYL CITRATE 100 MCG/2 ML VL IV ONE (06:45)
[2024-10-23] MEDS: MIDAZOLAM HCL 2MG/2ML 2ml VIAL (1mg/ml) IV ONE (06:45)
[2024-10-23 07:06] LABS: Hematocrit 39.6 % (36.0-46.0); Hemoglobin 12.8 g/dL (12.2-16.2); Mean Corpuscular Hemoglobin 28.9 pg (28.0-32.0); Mean Corpuscular Hgb Conc. 32.3 g/dL (32.0-36.0); Mean Corpuscular Volume 89.5 fL (80.0-100.0); Platelet Count (auto) 262 10^3/uL (140-450); Red Blood Cells 4.42 10^6/uL (4.0-5.20); Red Cell Distribution Width 13.3 % (11.8-14.3); White Blood Cell 28.4 10^3/uL (4.4-10.8)
[2024-10-23 07:17] LABS: Band Neutrophils % (manual) 0; Basophils % (manual) 0 (0.0-2.0); Blast Cells 0; Metamyelocytes % 0; Myelocytes % 0; Promyelocytes % 0; Reactive Lymphocytes 0
[2024-10-23 07:31] LABS: Alanine Aminotransferase 22 U/L (7-40); Albumin 3.9 g/dL (3.2-4.8); Anion Gap 12 (5-15); Aspartate Aminotransferase 21 U/L (13-40); BUN/Creatinine Ratio 23.6 (10.0-20.0); Bilirubin, Total 0.8 mg/dL (0.2-1.0); Blood Urea Nitrogen 17 mg/dL (9-23); Carbon Dioxide 23 mmol/L (20-31); Chloride 103 mmol/L (98-107); Sodium 138 mmol/L (136-145); Total Protein 5.8 g/dL (5.7-8.2)
[2024-10-23 07:33] LABS: Alkaline Phosphatase 136 U/L (46-116); Glucose 123 mg/dL (74-106); Potassium 3.5 mmol/L (3.5-5.1)
[2024-10-23] MEDS: LIDOCAINE 2%HCL (LOCAL ANESTH.) INJ 10ml MDV ONE (08:03)
[2024-10-23 08:07] LABS: Cancer Antigen (CA) 125 60.8 U/mL (0.0-38.1)
[2024-10-23 08:25] LABS: Eosinophils % (manual) 1 (0-7); Lymphocytes % (manual) 7 (10.0-50.0); Monocytes % (manual) 6 (0-12); Platelet Estimate Adequate
--- NOTE | 2024-10-23 09:05 | DVH ---
CHEST RADIOGRAPH Indication: pt going for a procedure/pain Technique: Single frontal view of the chest was obtained Comparison: None FINDINGS: Lines and Tubes: None Lungs: No focal consolidation. Pleura: No effusion. No pneumothorax. Cardiomediastinal contours: Unremarkable Bones: No acute osseous abnormality. IMPRESSION: No acute cardiopulmonary disease.
[2024-10-23 09:07] LABS: CA 27.29 190.5 U/mL (0.0-38.6)
[2024-10-23] MEDS: POTASSIUM EFFERVESENT TAB 25 MEQ PO SCH (09:31)
[2024-10-23] MEDS: OXYCODONE W/ ACETAMINOPHEN 5/325MG TABLET PO PRN (09:31)
[2024-10-23] MEDS: FAMOTIDINE 20 MG TAB PO SCH (09:32)
[2024-10-23] MEDS: HEPARIN DRIP/D5W 100UNITS/ML 250 ML IV SCH ×2 (09:45→16:46)
--- NOTE | 2024-10-23 11:16 | DVH ---
CT CT GUIDED NEEDLEBIOPSY, HISTORY: BX PROCEDURE: Informed consent was obtained. The patient was placed supine on the CT scanner, and limite d CT was performed of the liver. IV sedation was administered. The skin over the area of interest was prepped with chlorhexidine which was allowed to dry and draped in the usual sterile fashion. Time ou t was performed. 1% local lidocaine was administered. With intermittent CT guidance, Temno 17 gauge o uter coaxial guiding needle was advanced into the omentum mass. Multiple biopsies were obtained using Temno 18 gauge inner core biopsy needle. The specimens were placed in formalin and sent to pathology for analysis. The needle was withdrawn . Post procedural images were obtained. No immediate complica tion was identified. DLP = 2365 mGy-cm. SEDATION: Dr. Devan Temple was personally responsible for the administration of moderate sedation during the procedure performed, including the use of an independent trained observer who had no other duties during the procedure. The drugs utilized were IV fentanyl and versed (see nursing log for details). The total time of supervision by the attending physician was approximately 30 minutes. FINDINGS: Omentum mass seen in the anterior abdomen. Intra-procedural images demonstrate biopsy needl e within the margin of targeted lesion. Post procedural images do not demonstrate any significant hem orrhage. IMPRESSION: CT guided omentum mass biopsy. Pathology results pending.
--- NOTE | 2024-10-23 13:23 | DVH ---
EXAM: NM BONE WHOLE BODY History: bone mets Comparison Study: CT CAP from 10/22/2024 TECHNIQUE: At approximately 2 hours following intravenous administration 25.5 mCi of Tc-99m MDP, ante rior and posterior whole body planar images were obtained. FINDINGS: Focal radiotracer uptake in the left acetabulum. Additional focus of uptake near the left lateral [address] wall. Nonspecific uptake near the right sacroiliac joint, posterior right greater trochanter, and left less er trochanter. Physiologic radiotracer distribution in bilateral kidneys and urinary bladder. Degenerative changes in the shoulders, sternum, knees, and ankles. IMPRESSION: 1. 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 2. Additional focus of uptake near the left lateral chest wall, nonspecific. No definte CT correlate. 3. Nonspecific uptake near the right sacroiliac joint, posterior right greater trochanter, and left l zunilda trochanter. Findings may be due to degenerative changes versus metastatic disease. Attention on follow up.
--- NOTE | 2024-10-23 13:59 | DVHPN2 ---
Progress Note - Dictate Date Seen: Oct 23, 2024 Medical Necessity Reason Pt with a Central, PICC or Fol: No Subjective She remains clinically stable. No complaints of chest pain or shortness for breath. Started on IV heparin drip for right lower extremity DVT. Complains of generalized pain in the leg as well as abdomen. Says Percocet is helping better than [place]. Had a abdominal mass biopsy by Interventional Radiology this morning. vital signs Vital Sign Date Time Temp Pulse Resp B/P (MAP) Pulse Ox O2 Delivery O2 Flow Rate FiO2 10/23/24 12:34 98.0 105 16 116/73 (87) 94 98.0 10/23/24 07:30 Room Air* 0 21 Total Intake and Output 10/22/24 10/22/24 10/23/24 15:00 23:00 07:00 Intake Total 50 ml 900 ml 810 ml Balance 50 ml 900 ml 810 ml medications Current Medications Medications Dose Ordered Sig/Ryann Route Start Time Stop Time Status Last Admin Dose Admin Sodium Chloride 1,000 ml @ 60 mls/hr [id number] IV 10/21/24 16:00 10/23/24 05:27 60 MLS/HR Ondansetron HCl 4 mg Q4HP PRN IV 10/21/24 16:00 Docusate Sodium 100 mg BIDPRN PRN PO 10/21/24 16:00 Acetaminophen 650 mg Q6HP PRN PO 10/21/24 16:00 Morphine Sulfate 2 mg Q4HPRN PRN IV 10/21/24 16:00 10/23/24 05:26 2 MG Nitroglycerin 0.4 mg Q5MINP PRN SL 10/21/24 16:15 Morphine Sulfate 2 mg Q30M PRN IV 10/21/24 16:15 Gabapentin 300 mg TID PO 10/21/24 22:00 10/22/24 21:24 300 MG Hydralazine HCl 10 mg Q6HP PRN IV 10/21/24 18:00 Ceftriaxone Sodium 50 ml @ 100 mls/hr DAILY@09 IV 10/22/24 09:00 10/23/24 09:32 100 MLS/HR Magnesium Oxide 400 mg BID PO 10/22/24 22:00 10/23/24 09:31 400 MG Potassium Bicarbonate 50 meq BID PO 10/23/24 09:00 10/23/24 09:31 50 MEQ Oxycodone/ Acetaminophen 1 tab Q4HP PRN PO 10/22/24 14:15 10/23/24 09:31 1 TAB Sennosides 8.6 mg HS PO 10/22/24 22:00 10/22/24 21:24 8.6 MG Famotidine 20 mg DAILY PO 10/23/24 10:00 10/23/24 09:32 20 MG Heparin Sodium/ Dextrose 250 ml @ 20 mls/hr [id number] IV 10/23/24 09:45 10/23/24 09:45 20 MLS/HR objective She is alert awake oriented x3. Comfortable in bed without any acute distress. No complaints of chest pain shortness for breath dizziness or lightheadedness. HEENT neck supple no JVD. Pupils equal round react to light. Oropharynx clear. Heart regular rate and rhythm S1 plus S2. Lungs fair air movement. Chest tube will expansion. No rales or wheezes. Abdomen is obese. Soft. Nontender with positive bowel sounds. Extremities mild swelling/edema in the right lower extremity compared to left lower extremity. positive distal pedal pulses. Neurologically no focal deficits. laboratory and microbiology Laboratory Tests 10/23/24 05:46 Test 10/23/24 05:46 Range/Units Serum Glucose 123 H 74-106 mg/dL Assessment/Plan Continue IV heparin drip overnight. We will transitioned to oral Eliquis from tomorrow for DVT treatment. Meantime continue Percocet for her pain management. Her tumor markers are elevated suggestive of probable cancer. Wait for biopsy results. Meantime continue physical therapy and supportive care and treatment as she is on. We will arrange for home physical therapy, bedside commode. Patient she was she has a help at home with the family members and wants to go home with PT rather than going to a half-way facility. Therefore social Service consultation will be done. Patient needs to follow up outpatient with oncologist. Discussed with the patient regarding care plan at bedside. Plan discussed with: Patient, Other RANJAN BRICEÑO MD Oct 23, 2024 13:59
[2024-10-23 16:12] LABS: INR 1.09 (0.9-1.15); Partial Thromboplastin Time 41.5 SEC (24.5-34.5); Prothrombin Time 11.5 sec (9.3-11.8)
[2024-10-23] MEDS: CARVEDILOL 12.5 MG TAB PO SCH (21:29)
[2024-10-23 23:07] LABS: INR 1.09 (0.9-1.15); Prothrombin Time 11.5 sec (9.3-11.8)
[2024-10-23 23:22] LABS: Partial Thromboplastin Time 100.2 SEC (24.5-34.5)
[2024-10-24] VITALS (13 sets, daily range): BP systolic 91–129; BP diastolic 51–71; PULSE 88–105; RESP 16–20; TEMP 98–98.9; O2SAT 90–100
[2024-10-24] MEDS: HEPARIN DRIP/D5W 100UNITS/ML 250 ML IV SCH ×2 (00:46→10:11)
[2024-10-24 06:56] LABS: Hematocrit 37.3 % (36.0-46.0); Mean Corpuscular Hemoglobin 28.9 pg (28.0-32.0); Mean Corpuscular Hgb Conc. 32.2 g/dL (32.0-36.0); Mean Corpuscular Volume 89.6 fL (80.0-100.0); Platelet Count (auto) 294 10^3/uL (140-450); Red Blood Cells 4.17 10^6/uL (4.0-5.20); Red Cell Distribution Width 13.7 % (11.8-14.3); White Blood Cell 29.1 10^3/uL (4.4-10.8)
[2024-10-24 07:10] LABS: INR 1.06 (0.9-1.15); Prothrombin Time 11.2 sec (9.3-11.8)
[2024-10-24 07:13] LABS: Basophils % (manual) 0 (0.0-2.0); Blast Cells 0; Metamyelocytes % 0; Myelocytes % 0; Promyelocytes % 0; Reactive Lymphocytes 0
[2024-10-24 07:14] LABS: Partial Thromboplastin Time 77.9 SEC (24.5-34.5)
[2024-10-24 07:21] LABS: Alanine Aminotransferase 21 U/L (7-40); Anion Gap 8 (5-15); Calcium 9.9 mg/dL (8.7-10.4); Carbon Dioxide 25 mmol/L (20-31); Chloride 102 mmol/L (98-107); Glucose 102 mg/dL (74-106); Potassium 4.7 mmol/L (3.5-5.1)
[2024-10-24 07:22] LABS: Albumin 3.8 g/dL (3.2-4.8); Bilirubin, Total 0.7 mg/dL (0.2-1.0); Total Protein 5.9 g/dL (5.7-8.2)
[2024-10-24 07:29] LABS: Alkaline Phosphatase 178 U/L (46-116); Aspartate Aminotransferase < 8 U/L (13-40); Blood Urea Nitrogen 24 mg/dL (9-23); Sodium 135 mmol/L (136-145)
[2024-10-24 08:53] LABS: Band Neutrophils % (manual) 3; Eosinophils % (manual) 5 (0-7); Lymphocytes % (manual) 12 (10.0-50.0); Monocytes % (manual) 11 (0-12); Platelet Estimate Adequate
[2024-10-24] MEDS ORDERED: CEFD300C2 PO (12:46)
[2024-10-24] MEDS ORDERED: GABA-1250 PO (12:46)
[2024-10-24] MEDS ORDERED: APIX5TAB PO (12:46)
[2024-10-24] MEDS ORDERED: CARV-214 PO (12:46)
[2024-10-24] MEDS ORDERED: HYDR-4798 PO (12:46)
[2024-10-24] MEDS ORDERED: SENN-105 PO (12:48)
--- NOTE | 2024-10-24 13:36 | DVHPN2 ---
Progress Note - Dictate Date Seen: Oct 24, 2024 Medical Necessity Reason Pt with a Central, PICC or Fol: No Subjective She remains clinically stable. No complaints of chest pain or shortness for breath. Wants to go home not to senior living facility. Discussed with the patient as well as her son Phoenix over the phone per her request regarding her diagnosis and plan of care. vital signs Vital Sign Date Time Temp Pulse Resp B/P (MAP) Pulse Ox O2 Delivery O2 Flow Rate FiO2 10/24/24 10:00 92 91/56 10/24/24 09:00 98.9 18 94 98.9 10/24/24 08:00 Room Air* 0 21 Total Intake and Output 10/23/24 10/23/24 10/24/24 15:00 23:00 07:00 Intake Total 850 ml 504 ml Balance 850 ml 504 ml medications Current Medications Medications Dose Ordered Sig/Ryann Route Start Time Stop Time Status Last Admin Dose Admin Ondansetron HCl 4 mg Q4HP PRN IV 10/21/24 16:00 Docusate Sodium 100 mg BIDPRN PRN PO 10/21/24 16:00 Acetaminophen 650 mg Q6HP PRN PO 10/21/24 16:00 Morphine Sulfate 2 mg Q4HPRN PRN IV 10/21/24 16:00 10/23/24 16:36 2 MG Nitroglycerin 0.4 mg Q5MINP PRN SL 10/21/24 16:15 Morphine Sulfate 2 mg Q30M PRN IV 10/21/24 16:15 Gabapentin 300 mg TID PO 10/21/24 22:00 10/24/24 05:22 300 MG Hydralazine HCl 10 mg Q6HP PRN IV 10/21/24 18:00 Ceftriaxone Sodium 50 ml @ 100 mls/hr DAILY@09 IV 10/22/24 09:00 10/24/24 10:03 100 MLS/HR Magnesium Oxide 400 mg BID PO 10/22/24 22:00 10/24/24 10:02 400 MG Potassium Bicarbonate 50 meq BID PO 10/23/24 09:00 10/24/24 10:03 50 MEQ Oxycodone/ Acetaminophen 1 tab Q4HP PRN PO 10/22/24 14:15 10/24/24 10:02 1 TAB Sennosides 8.6 mg HS PO 10/22/24 22:00 2/26/25 21:28 8.6 MG Famotidine 20 mg DAILY PO 10/23/24 10:00 10/24/24 10:02 20 MG Carvedilol 3.125 mg Q12HR PO 10/24/24 22:00 UNV Apixaban 10 mg BID PO 10/24/24 22:00 10/31/24 21:59 UNV Apixaban 5 mg BID PO 10/24/24 22:00 UNV objective She is alert awake oriented x3. Comfortable in bed without any acute distress. No complaints of chest pain shortness for breath dizziness or lightheadedness. HEENT neck supple no JVD. Pupils equal round react to light. Oropharynx clear. Heart regular rate and rhythm S1 plus S2. Lungs fair air movement. Chest tube will expansion. No rales or wheezes. Abdomen is obese. Soft. Nontender with positive bowel sounds. Extremities mild swelling/edema in the right lower extremity compared to left lower extremity. positive distal pedal pulses. Neurologically no focal deficits. laboratory and microbiology Laboratory Tests 10/24/24 06:38 Test 10/24/24 06:38 Range/Units Serum Glucose 102 74-106 mg/dL Assessment/Plan We will DC heparin drip this afternoon transitioned to oral Eliquis for DVT. Given her blood pressure is low we will cut down the Coreg to 3.125 mg p.o. b.i.d. for tachycardia. Arrange for home wheelchair and physical therapy for patient and son's request. Apparently patient is scheduled to undergo pain shot with the pain management for her hip pain on November 04. Apparently per son she is in the process of receiving hospice services after her hip injection on November 04. Meantime I told patient and son that she has a stage IV most likely cancer however it is unclear whether it is coming from lung or abdomen. Pathology of abdominal biopsy still pending. Therefore I have advised them to follow up with the biopsy results with her primary care physician as well as oncologist Dr. Thompson in 1-2 weeks to discuss further options including chemoradiation treatments versus palliative/hospice services. Meantime we will continue to manage her pain with the pain medications. Continue physical therapy ambulation. Monitor overnight. If she remains stable discharge home tomorrow. Patient and son verbalized understanding of her hospital diagnosis, treatment she was receiving, discharge medications and follow-up plan of care. Problems(with codes): (1) Lung mass (2) DVT of leg (deep venous thrombosis) (3) Leukocytosis, unspecified (4) Metastasis of unknown origin (5) Chronic pain of right lower extremity Plan discussed with: Patient, Son RANJAN BRICEÑO MD Oct 24, 2024 13:36
[2024-10-24] MEDS: APIXABAN 5 MG TAB PO ONE (15:40)
[2024-10-24] MEDS: LEVALBUTEROL HCL 1.25 MG/3 ML NEB ONE (16:17)
[2024-10-24] MEDS: IPRATROPIUM BROM 0.5 MG/2.5ML INH SOL ONE (16:17)
[2024-10-24] MEDS: IPRATROPIUM BROM 0.5 MG/2.5ML INH SOL NEB ONE (19:05)
[2024-10-24] MEDS: LEVALBUTEROL HCL 1.25 MG/3 ML NEB NEB ONE (19:05)
--- NOTE | 2024-10-24 21:07 | DVHSR ---
APPROVED REPORT EXAM: Two-dimensional and M-mode echocardiogram with Doppler and color Doppler. Blood Pressure: 96/62 mmHg INDICATION Arrhythmia RISK FACTORS Height: 5'2", Weight: 257 DIMENSIONS LVDd4.9 (3.8-5.7cm)LA (2D)3.9 (1.9-4.0cm)Aortic Root (2.0-3.7cm) LVDs3.2 (2.5-4.0cm)LA (MM) (1.9-4.0cm)Aortic Cusp Exc (1.5-2.0cm) EF (%) 65.0 (55-70%)Rt. Atrium (1.9-4.0cm)Asc. Aorta cm IVSd0.8 (0.7-1.1cm)RV (D) (1.8-2.4cm) Mitral Valve MitralMitral Stenosis E wave1.04m/sMV Mean GR.mmHg A wave1.25m/sMV Peak GR.mmHg E/A ratio0.82D MVAcm2 DECEL [id number] 1/2 [place] Aortic Valve Aortic ValveAortic Stenosis V11.54m/[place] Mean GR.15mmHg V22.41m/[place] Peak GR.23mmHg LVOT Diameter2.0 (1.8-2.4cm)Doppler AVA2.01cm2 Other Information Quality : Technically LimitedRhythm : Technically limited study due to body habitus and lying flat Conclusion Technically good study. Off axis views. Normal chamber sizes. Mild aortic sclerosis without stenosis. Left ventricular function is preserved at 60% with normal RV function. There is a small gradient across the aortic valve of 26 mmHg and a mean gradient of15 mmHg consistent with aortic sclerosis. No pericardial effusion masses or vegetations.
[2024-10-24] MEDS: CARVEDILOL 3.125 MG TAB PO SCH (21:51)
[2024-10-24] MEDS: LEVALBUTEROL HCL 1.25 MG/3 ML NEB NEB SCH (23:38)
[2024-10-24] MEDS: IPRATROPIUM BROM 0.5 MG/2.5ML INH SOL NEB SCH (23:38)
[2024-10-25] VITALS (11 sets, daily range): BP systolic 111–134; BP diastolic 70–80; PULSE 83–99; RESP 16–20; TEMP 97.9–98.7; O2SAT 91–100
[2024-10-25] MEDS: APIXABAN 5 MG TAB PO SCH (05:14)
[2024-10-31] MEDS ORDERED: APIXABAN 5 MG TAB PO SCH (18:00)
== END 2024-10-25 19:00 | disposition hospice, home (50) | DRG 844 ==
LOC: EDBD 10:12 → ER 10:12 → OVERFLOW 16:10 → WEST WING 16:13
PROVIDERS: ADMIT Hospitalist; ATTEND Hospitalist
PROC: 0DBU3ZX Excision of Omentum, Percutaneous Approach, Diagnostic (ICD-10-PCS; principal; 2024-10-23)
DX: C80.1 Malignant (primary) neoplasm, unspecified (principal); I82.431 Acute embolism and thrombosis of right popliteal vein; Z68.42 Body mass index [BMI] 45.0-49.9, adult; E87.6 Hypokalemia; Z51.5 Encounter for palliative care; D72.829 Elevated white blood cell count, unspecified; I10 Essential (primary) hypertension; J44.9 Chronic obstructive pulmonary disease, unspecified; G89.29 Other chronic pain; K76.0 Fatty (change of) liver, not elsewhere classified; E66.9 Obesity, unspecified; Z90.49 Acquired absence of other specified parts of digestive tract; Z82.49 Family history of ischemic heart disease and other diseases of the circulatory system; Z80.7 Family history of other malignant neoplasms of lymphoid, hematopoietic and related tissues; Z80.3 Family history of malignant neoplasm of breast; Z79.899 Other long term (current) drug therapy
CPT/HCPCS: 10005; 36415; 71045; 71260; 74150; 74176; 74177; 77012; 78306; 80053; 81001; 82378; 83036; 83605; 83615; 83690; 84484; 85007; 85025; 85027; 85610; 85730; 86300; 86301; 86304; 86850; 86900; 86901; 87040; 93306; 93971; 94640; 96361; 96365; 96375; 97110; 97163; G0378; J2003; J2250; J2405; J2470; J3480